=== PATIENT | female | born 1960 | race African-American/Black ===

== ENCOUNTER 2017-03-29 09:27 | Emergency (ER) | payer BC ==
[~2017-03-29] VITALS: Ht 157.5 cm; Wt 76.4 kg
[~2017-03-29 09:27] MED LIST: AMLODIPINE5 MG PO; BL ADULT ASA81 MG PO; CRESTOR40 MG PO; KEFLEX500 MG PO; LASIX 40 MG40 MG/TAB PO; LISINOPRIL10 MG PO; LISINOPRIL20 MG PO; LORTAB5 PO; MAXZIDE PO; MECLIZINE25 MG PO; UNKNOWN HTN MED; ZESTRIL40 MG PO; ZOCOR10 MG PO
[2017-03-29] MEDS ORDERED: LISINOPRIL20 MG PO (09:35)
[2017-03-29] MEDS ORDERED: AMLODIPINE5 MG PO (09:35)
[2017-03-29] MEDS ORDERED: LIPITOR40 M1 PO (09:36)
[2017-03-29] MEDS ORDERED: EQL BIOTIN5000 MCG PO (09:36)
[2017-03-29 10:11] LABS: HEMATOCRIT 37.6 % (37.0-47.0); HEMOGLOBIN 11.9 g/dl (12.0-16.0); IMMATURE GRANULOCYTES 0.1 % (0.0-1.0); MEAN CELL VOLUME 63.8 fL CALC (80.0-100.0); MEAN CORPUSCULAR HGB 20.2 pG CALC (26.0-32.0); MEAN CORPUSCULAR HGB CONC 31.6 g/L CALC (32.0-36.0); NEUT# 3.52 thou/uL (2.00-7.15); RED BLOOD COUNT 5.89 mill/uL (4.20-5.60); RED CELL DISTRI WIDTH 16.6 % (11.5-15.5)
[2017-03-29 10:33] LABS: ALBUMIN 4.3 g/dL (3.2-5.0); ALKALINE PHOSPHATASE 135 u/l (38-126); ANION GAP 14 (6-22 (CALC)); BILIRUBIN, TOTAL 0.6 mg/dL (0.0-1.4); BUN 10 mg/dL (7-17); BUN/CREATININE RATIO 18 (12-20 (CALC)); CALCIUM 10.4 mg/dL (8.4-10.2); CARBON DIOXIDE 25 mmol/l (22-30); CHLORIDE 108 mmol/l (95-108); CREATININE 0.5 mg/dL (0.5-1.0); GFR > 60 ML/MIN (>=60 (CALC)); GFR FOR AFR.AMER. > 60 ML/MIN (>=60 (CALC)); GLUCOSE 127 mg/dL (65-105); SGOT/AST 22 u/l (14-36); SGPT/ALT 32 u/l (9-52); SODIUM 143 mmol/l (137-146); TOTAL PROTEIN 7.5 g/dL (6.3-8.2)
[2017-03-29] MEDS ORDERED: CATAPRES0.2 MG PO (10:55)
[2017-03-29 10:58] VITALS: BP 142/83
== END 2017-03-29 11:07 | disposition home or self-care (01) | DRG 305 ==
LOC: ED 09:27
PROVIDERS: Emergency Medicine
DX: I10 Essential (primary) hypertension (principal); E78.5 Hyperlipidemia, unspecified; F17.210 Nicotine dependence, cigarettes, uncomplicated

== ENCOUNTER 2019-02-18 06:37 | Day surgery (SDC) | payer BC ==
[~2019-02-18 06:37] MED LIST changes: +BLACK COHOSH40 MG PO; +CATAPRES0.2 MG PO; +D3 MAXIMUM5000 UNI1 PO; +EQL BIOTIN5000 MCG PO; +HYDROCHLOROT25 MG PO; +LIPITOR40 M1 PO; +NIFEDIPINE60 MG PO
[2019-02-18 09:14] VITALS: BP 123/70
== END 2019-02-18 09:07 | disposition home or self-care (01) | DRG 379 ==
LOC: ENDO 06:37 → ORM 08:25 → ENDO 08:25 → ORM 09:00 → ENDO 09:07 → ORM 09:15
PROVIDERS: ATTEND Internal Medicine Gastroenterology
PROC: 0DB78ZX Excision of Stomach, Pylorus, Via Natural or Artificial Opening Endoscopic, Diagnostic (ICD-10-PCS; principal; 2019-02-18)
PROC: 0DBP8ZX Excision of Rectum, Via Natural or Artificial Opening Endoscopic, Diagnostic (ICD-10-PCS; 2019-02-18)
PROC: 0DBL8ZX Excision of Transverse Colon, Via Natural or Artificial Opening Endoscopic, Diagnostic (ICD-10-PCS; 2019-02-18)
PROC: 0DBN8ZX Excision of Sigmoid Colon, Via Natural or Artificial Opening Endoscopic, Diagnostic (ICD-10-PCS; 2019-02-18)
DX: K29.51 Unspecified chronic gastritis with bleeding (principal); K57.31 Diverticulosis of large intestine without perforation or abscess with bleeding; K44.9 Diaphragmatic hernia without obstruction or gangrene; D12.3 Benign neoplasm of transverse colon; K63.5 Polyp of colon; K62.1 Rectal polyp; K64.4 Residual hemorrhoidal skin tags; I10 Essential (primary) hypertension; B96.81 Helicobacter pylori [H. pylori] as the cause of diseases classified elsewhere

== ENCOUNTER 2021-10-02 11:06 | Emergency (ER) | payer OTHER ==
[~2021-10-02] VITALS: Ht 157.5 cm; Wt 75.0 kg
[2021-10-02 12:42] LABS: URINE BILIRUBIN - DIPSTICK NEGATIVE (NEGATIVE); URINE BLOOD DIPSTICK NEGATIVE (NEGATIVE); URINE COLOR YELLOW; URINE GLUCOSE - DIPSTICK NEGATIVE (NEGATIVE); URINE KETONE NEGATIVE (NEGATIVE); URINE LEUK ESTERASE NEGATIVE (NEGATIVE); URINE PH 7.5 (4.5-8.0); URINE PROTEIN - DIPSTICK NEGATIVE (NEG-TRACE); URINE SPECIFIC GRAVITY 1.015; URINE UROBILINOGEN - DIPSTICK 0.2 E.U./dL (0.2)
[2021-10-02 12:43] LABS: URINE NITRITE - DIPSTICK NEGATIVE (Negative)
[2021-10-02] MEDS ORDERED: NAPROXEN500 MG PO (12:51)
[2021-10-02] MEDS ORDERED: CYCLOBENZAPRINE10 MG PO (12:51)
[2021-10-02 13:20] VITALS: BP 137/74
== END 2021-10-02 13:20 | disposition home or self-care (01) | DRG 552 ==
LOC: ED 11:06
PROVIDERS: Emergency Medicine
DX: S33.5XXA Sprain of ligaments of lumbar spine, initial encounter (principal); E11.9 Type 2 diabetes mellitus without complications; I10 Essential (primary) hypertension; F17.210 Nicotine dependence, cigarettes, uncomplicated; X50.0XXA Overexertion from strenuous movement or load, initial encounter; Y93.F2 Activity, caregiving, lifting; Y99.0 Civilian activity done for income or pay

== ENCOUNTER 2022-01-29 00:02 | Emergency (ER) | payer OTHER ==
[~2022-01-29] VITALS: Ht 157.5 cm; Wt 73.0 kg
[~2022-01-29 00:02] MED LIST changes: +ALL DAY10 MG PO; +CYCLOBENZAPRINE10 MG PO; +METFORMIN HCL500 M1 PO; +NAPROXEN500 MG PO
[2022-01-29 00:54] VITALS: BP 126/73
[2022-01-29 01:00] VITALS: BP 124/72
[2022-01-29 01:30] VITALS: BP 122/68
[2022-01-29] MEDS ORDERED: ADULT ASPIRIN R81 MG PO (02:15)
[2022-01-29] MEDS ORDERED: DICLOFENAC75 MG PO (02:16)
[2022-01-29 04:35] VITALS: BP 126/73
== END 2022-01-29 04:37 | disposition home or self-care (01) | DRG 605 ==
LOC: ED 00:02
DX: S00.03XA Contusion of scalp, initial encounter (principal); I10 Essential (primary) hypertension; E11.9 Type 2 diabetes mellitus without complications; F17.210 Nicotine dependence, cigarettes, uncomplicated; W22.09XA Striking against other stationary object, initial encounter; Y92.000 Kitchen of unspecified non-institutional (private) residence as the place of occurrence of the external cause; Z79.84 Long term (current) use of oral hypoglycemic drugs

== ENCOUNTER 2022-02-11 10:33 | Day surgery (SDC) | payer OTHER ==
[~2022-02-11] VITALS: Ht 157.5 cm; Wt 72.6 kg
[~2022-02-11 10:33] MED LIST changes: +ADULT ASPIRIN R81 MG PO; +DICLOFENAC75 MG PO; +PRILOSEC20 MG/CAP PO
[2022-02-11 12:52] VITALS: BP 134/70
== END 2022-02-11 13:15 | disposition home or self-care (01) | DRG 951 ==
LOC: ORM 10:33
PROVIDERS: ATTEND Surgery
PROC: 0DJD8ZZ Inspection of Lower Intestinal Tract, Via Natural or Artificial Opening Endoscopic (ICD-10-PCS; principal; 2022-02-11)
PROC: 0DB98ZX Excision of Duodenum, Via Natural or Artificial Opening Endoscopic, Diagnostic (ICD-10-PCS; 2022-02-11)
PROC: 0DB78ZX Excision of Stomach, Pylorus, Via Natural or Artificial Opening Endoscopic, Diagnostic (ICD-10-PCS; 2022-02-11)
DX: Z12.11 Encounter for screening for malignant neoplasm of colon (principal); R19.02 Left upper quadrant abdominal swelling, mass and lump; K29.70 Gastritis, unspecified, without bleeding; K44.9 Diaphragmatic hernia without obstruction or gangrene; K31.89 Other diseases of stomach and duodenum; I10 Essential (primary) hypertension; E11.9 Type 2 diabetes mellitus without complications; F17.200 Nicotine dependence, unspecified, uncomplicated; Z79.84 Long term (current) use of oral hypoglycemic drugs; Z86.010 Personal history of colon polyps

== ENCOUNTER 2022-12-07 23:37 | Emergency (ER) | payer SELFPAY ==
[~2022-12-07] VITALS: Ht 157.5 cm; Wt 74.0 kg
[2022-12-07 23:48] VITALS: BP 140/76
[2022-12-08] VITALS (8 sets, daily range): BP systolic 124–134; BP diastolic 66–72
[2022-12-08 00:02] LABS: BASO% 0.3 % (0-3); EOS% 1.4 % (0-8); HEMATOCRIT 35.8 % (37.0-47.0); HEMOGLOBIN 11.3 g/dl (12.0-16.0); IMMATURE GRANULOCYTES 0.1 % (0.0-5.0); LYMPH% 38.5 % (15-41); MEAN CELL VOLUME 64.2 fL CALC (80.0-100.0); MEAN CORPUSCULAR HGB 20.3 pG CALC (26.0-32.0); MEAN CORPUSCULAR HGB CONC 31.6 g/dL CAL (32.0-36.0); MONO% 7.6 % (2-13); NEUT# 4.74 thou/uL (2.00-7.15); NEUT% 52.1 % (42-76); RED BLOOD COUNT 5.58 mill/uL (4.20-5.60); RED CELL DISTRI WIDTH 16.6 % (11.5-15.5)
[2022-12-08 00:15] LABS: INTERNATIONAL NORMALIZED RATIO 0.9 RATIO (0.7-1.3); PROTHROMBIN TIME 9.2 SECONDS (9.0-12.5)
[2022-12-08 00:24] LABS: ALBUMIN 4.5 g/dL (3.2-5.0); ALKALINE PHOSPHATASE 118 u/l (38-126); ANION GAP 9 (6-22 (CALC)); BILIRUBIN, TOTAL 0.4 mg/dL (0.0-1.4); BUN 12 mg/dL (8-23); BUN/CREATININE RATIO 15 (12-20 (CALC)); CARBON DIOXIDE 28 mmol/l (22-30); CHLORIDE 105 mmol/l (95-108); CREATININE 0.8 mg/dL (0.5-1.0); GFR FOR AFR.AMER. > 60 ML/MIN (>=60 (CALC)); GFR OTHER RACES > 60 ML/MIN (>=60 (CALC)); LIPASE 260 u/l (23-300); POTASSIUM 3.2 mmol/l (3.5-5.1); SGOT/AST 32 u/l (9-36); SODIUM 139 mmol/l (137-146); TOTAL PROTEIN 7.3 g/dL (6.3-8.2)
[2022-12-08 00:26] LABS: D-DIMER 0.17 mg/L (0.19-0.60)
[2022-12-08] MEDS ORDERED: K-TAB20 MEQ PO (02:52)
== END 2022-12-08 03:15 | disposition home or self-care (01) | DRG 641 ==
LOC: ED 23:37
PROVIDERS: Internal Medicine
DX: E87.6 Hypokalemia (principal); I10 Essential (primary) hypertension; R00.2 Palpitations

== ENCOUNTER 2025-02-02 19:18 | Emergency (ER) | payer MEDICARE ==
[~2025-02-02] VITALS: Ht 157.5 cm; Wt 75.7 kg
[~2025-02-02 19:18] MED LIST changes: +K-TAB20 MEQ PO
[2025-02-02] MEDS ORDERED: SODIUM CHLORIDE 0.9% 1,000 ML IV ONE (19:45)
[2025-02-02 20:09] LABS: URINE BILIRUBIN - DIPSTICK Negative (NEGATIVE); URINE BLOOD DIPSTICK Negative (NEGATIVE); URINE GLUCOSE - DIPSTICK Negative (NEGATIVE); URINE KETONE Negative (NEGATIVE); URINE LEUK ESTERASE Negative (NEGATIVE); URINE NITRITE - DIPSTICK Negative (Negative); URINE PH 5.5 (4.5-8.0); URINE PROTEIN - DIPSTICK Negative (NEG-TRACE); URINE SPECIFIC GRAVITY <=1.005; URINE UROBILINOGEN - DIPSTICK 0.2 E.U./dL (0.2)
[2025-02-02 20:10] LABS: BASO% 0.4 % (0-3); EOS% 0.9 % (0-8); HEMOGLOBIN 11.4 g/dl (12.0-16.0); IMMATURE GRANULOCYTES 0.1 % (0.0-5.0); LYMPH% 33.5 % (15-41); MEAN CELL VOLUME 62.4 fL CALC (80.0-100.0); MEAN CORPUSCULAR HGB 19.8 pG CALC (26.0-32.0); MEAN CORPUSCULAR HGB CONC 31.7 g/dL CAL (32.0-36.0); MONO% 9.5 % (2-13); NEUT# 3.88 thou/uL (2.00-7.15); NEUT% 55.6 % (42-76); RED BLOOD COUNT 5.77 mill/uL (4.20-5.60); RED CELL DISTRI WIDTH 16.2 % (11.5-15.5)
[2025-02-02 20:10] LABS: URINE COLOR Light yellow
[2025-02-02 20:25] VITALS: BP 122/77
[2025-02-02 20:30] VITALS: BP 139/75
[2025-02-02 20:30] LABS: ALBUMIN 4.4 g/dL (3.2-5.0); BILIRUBIN, TOTAL 0.4 mg/dL (0.02-1.3); CREATININE 0.6 mg/dL (0.5-1.0); MAGNESIUM 1.9 mg/dL (1.6-2.3); POTASSIUM 3.3 mmol/l (3.5-5.1); TOTAL PROTEIN 7.3 g/dL (6.3-8.2)
[2025-02-02] MEDS ORDERED: oxyCODONE 5MG/ ACETAMINOPHEN 325MG TAB PO ONE (20:30)
[2025-02-02 20:45] VITALS: BP 124/69
[2025-02-02 21:00] VITALS: BP 129/75
[2025-02-02] MEDS ORDERED: BENZONATATE 200 MG/CAP PO ONE (21:10)
[2025-02-02] MEDS ORDERED: DECADRON4 MG PO (21:13)
[2025-02-02] MEDS ORDERED: BENZONATATE200 MG PO (21:13)
[2025-02-02 21:15] VITALS: BP 133/71
[2025-02-02 21:35] VITALS: BP 133/71
== END 2025-02-02 21:35 | disposition home or self-care (01) ==
LOC: ED 19:18
PROVIDERS: Family Medicine
DX: J98.8 Other specified respiratory disorders (principal); B97.29 Other coronavirus as the cause of diseases classified elsewhere; I10 Essential (primary) hypertension; E11.9 Type 2 diabetes mellitus without complications; F17.200 Nicotine dependence, unspecified, uncomplicated; Z79.84 Long term (current) use of oral hypoglycemic drugs; Z20.822 Contact with and (suspected) exposure to COVID-19